=== PATIENT | male | born 2000 | race African-American/Black ===

== ENCOUNTER 2023-01-15 10:22 | Emergency (ER) | payer BC ==
[2023-01-15 10:43] VITALS: BP 145/83; PULSE 79; RESP 18; TEMP 98.2
[2023-01-15] MEDS ORDERED: ACET/COD 300 MG/30 MG STARTER PACK 6 TAB BTL PO STA (11:16)
[2023-01-15] MEDS ORDERED: IBUPROFEN 600 MG STARTER PACK 4 TAB BTL PO STA (11:16)
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
== END 2023-01-15 11:48 | disposition home or self-care (01) ==
LOC: EC 10:22
DX: S01.511A Laceration without foreign body of lip, initial encounter (principal); Y04.0XXA Assault by unarmed brawl or fight, initial encounter
CPT/HCPCS: 12013; 99284

== ENCOUNTER 2023-02-22 10:55 | Emergency (ER) | payer BC ==
[2023-02-22] MEDS ORDERED: PROPARACAINE 0.5% OPHTH DROPS 15 ML BTL BOTH EYES STA (11:21)
[2023-02-22] MEDS ORDERED: FLUORESCEIN STRIPS 1 MG STRIP LEFT EYE ONE (11:21)
[2023-02-22] MEDS ORDERED: TETRAHYDROZOLINE 0.05% OPHTH DROPS 15 ML BTL LEFT EYE ONE (11:50)
[2023-02-22] MEDS ORDERED: KETOROLAC 0.5% OPHTH DROPS 5 ML BTL LEFT EYE ONE (11:50)
--- NOTE | 2023-02-22 12:01 | ED ---
Eye Problem HPI - General Chief complaint: Eye Problems Stated complaint: left eye issue Time Seen by Provider: 02/22/23 11:20 Source: patient, RN notes reviewed Mode of arrival: ambulatory Limitations: no limitations - History of Present Illness Initial comments: This is a 22-year-old male who presents to the emergency department for left eye pain. States that the symptoms started 3 days ago. He reports associated blurry vision. Also states that he has photophobia. He has not had any drainage from the eye. Denies any known injuries. States that this just began when he woke up 3 days ago. States that the eye is also tender to the touch. He does not wear contacts. chief complaint: eye pain - Related Data Allergies Allergy/AdvReac Type Severity Reaction Status Date / Time No Known Allergies Allergy Verified 01/15/23 10:42 Review of Systems ROS Statement: Those systems with pertinent positive or pertinent negative responses have been documented in the HPI. ROS Other: All systems not noted in ROS Statement are negative. Past Medical History Past Medical History: No Reported History History of Any Multi-Drug Resistant Organisms: None Reported Past Surgical History: Orthopedic Surgery Smoking Status: Never smoker Past Alcohol Use History: Occasional Past Drug Use History: None Reported General Exam Limitations: no limitations General appearance: alert, in no apparent distress Head exam: Present: atraumatic, normocephalic, normal inspection Eye exam: Present: PERRL, EOMI, conjunctival injection (left) Expanded Visual acuity (R) = 20/: 20 Visual acuity (L) = 20/: 25 IOP (R) in mmH IOP (L) in mmH IOP measured with: Tonopen Respiratory exam: Present: normal lung sounds bilaterally. Absent: respiratory distress, wheezes, rales, rhonchi, stridor Cardiovascular Exam: Present: regular rate, normal rhythm, normal heart sounds. Absent: systolic murmur, diastolic murmur, rubs, gallop, clicks Neurological exam: Present: alert, oriented X3, CN II-XII intact Psychiatric exam: Present: normal affect, normal mood Skin exam: Present: warm, dry, intact, normal color. Absent: rash Course Vital Signs 02/22/23 02/22/23 11:04 12:12 Temperature 98.7 F 98.4 F Pulse Rate 68 72 Respiratory 16 18 Rate Blood Pressure 134/82 136/78 O2 Sat by Pulse 98 98 Oximetry Medical Decision Making - Medical Decision Making This is a 22-year-old male who presents to the emergency department for left eye pain. Was pt. sent in by a medical professional or institution? @ -No Did you speak to anyone other than the patient for history? @ -No Did you review nursing and triage notes? @ -Yes, and I agree, it is accurate with regards to the patient's symptoms. Were old charts reviewed? @ -No Differential Diagnosis? @ -Differential Eye Pain: Conjuncitivitis (viral, bacterial, allergic), corneal abrasion, foreign body, iritis, uveitis, keratitis, acute angle closure glaucoma, this is not meant to be an all-inclusive list. EKG interpreted by me (3pts min.)? @ -Not obtained X-rays interpreted by me (1pt min.)? @ -Not obtained CT interpreted by me (1pt min.)? @ -Not obtained U/S interpreted by me (1pt. min.)? @ -Not obtained What testing was considered but not performed? (CT, X-rays, U/S, labs)? Why? @ -None What meds were considered but not given? Why? @ -None Did you discuss the management of the patient with other professionals? @ -No Did you reconcile home meds? @ -No Was smoking cessation discussed for >3mins.? @ -No Was critical care preformed (if so, how long)? @ -No Were there social determinants of health that impacted care today? How? (Homelessness, low income, unemployed, alcoholism, drug addiction, transportation, low edu. Level, literacy, decrease access to med. care, senior care, rehab)? @ -No Was there de-escalation of care discussed even if they declined? (Discuss DNR or withdrawal of care, Hospice)? @ -No What co-morbidities impacted this encounter? (DM, HTN, Smoking, COPD, CAD, Cancer, CVA, Hep., AIDS, mental health diagnosis, sleep apnea, morbid obesity)? @ -None Was patient admitted / discharged? @ -Discharged. Visual acuity in the left eye is 20/25 and right eye 20/20. Fluorescein staining identifies no evidence of a corneal abrasion. Intraocular pressures are normal limits at 10 in the left eye and 9 in the right eye. At this point the cause of this is not entirely clear. It may be an allergic conjuncitivitis or related to weather changes. However, discussed with the patient that we tend to be more aggressive with eye problems and we will have him follow-up with ophthalmology. Our window caser was able to get him an appointment with on-call ophthalmology, Dr. Mccullough, at 2:30 PM today. This was discussed with the patient who expresses understanding and will plan on attending that appointment. Undiagnosed new problem with uncertain prognosis? @ -None Drug Therapy requiring intensive monitoring for toxicity (Heparin, Nitro, Insulin, Cardizem)? @ -None Were any procedures done? @ -None Diagnosis/symptom? @ -Left eye pain Acute, or Chronic, or Acute on Chronic? @ -Acute Uncomplicated (without systemic symptoms) or Complicated (systemic symptoms)? @ -Uncomplicated Side effects of treatment? @ -None Exacerbation, Progression, or Severe Exacerbation] @ -Not applicable Poses a threat to life or bodily function? @ -This is effecting his vision. Return precautions reviewed in depth, the patient is instructed to return to the emergency department with any new, worsening, or concerning symptoms. Patient verbalized understanding. This case was discussed in detail with the attending ED physician, Dr. Barbosa. Presentation, findings, and treatment plan discussed in detail as well. Disposition Clinical Impression: Left eye pain Disposition: HOME SELF-CARE Instructions (If sedation given, give patient instructions): Eye Pain (ED) Additional Instructions: Return to the emergency department with any new, worsening, or concerning symptoms. Follow up with Ophthalmology at 2:30pm today as scheduled with Dr. Mccullough. Is patient prescribed a controlled substance at d/c from ED?: No Referrals: Mauricio Mccullough MD [STAFF PHYSICIAN] - 02/22/23 2:30 pm Nonstaff,Physician [Primary Care Provider] - 1-2 days
[2023-02-22 12:18] VITALS: BP 136/78; PULSE 72; RESP 18; TEMP 98.4
== END 2023-02-22 12:16 | disposition home or self-care (01) ==
LOC: EC 10:55
DX: H10.12 Acute atopic conjunctivitis, left eye (principal)
CPT/HCPCS: 99283

== ENCOUNTER 2023-08-01 17:09 | Emergency (ER) | payer BC, OTHER ==
[2023-08-01 17:47] VITALS: RESP 18; TEMP 98.5
[2023-08-01] MEDS: KETOROLAC 15 MG/ML 1 ML VIAL IM STA (18:01)
[2023-08-01] MEDS: ACETAMINOPHEN TAB 500 MG TAB PO STA (18:02)
[2023-08-01] MEDS: DEXAMETHASONE SOD PHOSPHATE 10 MG/ML 1 ML VIAL IM STA (18:02)
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
[2023-08-01] MEDS: IBUPROFEN 800 MG TAB PO STA (18:18)
[2023-08-01 18:28] VITALS: BP 131/76; PULSE 56
== END 2023-08-01 18:38 | disposition home or self-care (01) ==
LOC: EC 17:09
DX: S09.90XA Unspecified injury of head, initial encounter (principal); V49.40XA Driver injured in collision with unspecified motor vehicles in traffic accident, initial encounter
CPT/HCPCS: 70450; 72125; 99284